=== PATIENT | female | born 1975 ===

== ENCOUNTER 2025-09-09 11:11 | Emergency (ER) | payer MEDICAID ==
[2025-09-09] MEDS ORDERED: Sodium Chloride 0.9% 10 ML Syringe FLUSH PRN (12:08)
[2025-09-09 12:59] LABS: AMPHETAMINES SCREEN, URINE NEGATIVE (NEGATIVE); APPEARANCE,URINE CLOUDY; COCAINE METABOLITES,URINE NEGATIVE (NEGATIVE); EDDP,URINE SCREEN NEGATIVE (NEGATIVE); GLUCOSE,URINE NEGATIVE (NEGATIVE); METHAMPHETAMINES SCREEN, URINE NEGATIVE (NEGATIVE); OCCULT BLOOD,URINE NEGATIVE (NEGATIVE); TCA SCREEN,URINE NEGATIVE (NEGATIVE); THC SCREEN,URINE 50 NG/ML NEGATIVE (NEGATIVE)
[2025-09-09 13:01] LABS: BUPRENORPHINE SCREEN,URINE POSITIVE (NEGATIVE); OXYCODONE SCREEN,URINE NEGATIVE (NEGATIVE)
[2025-09-09 13:04] LABS: EPITHELIAL CELLS,URINE FEW /LPF; SQUAMOUS EPITHELIAL CELLS,UR FEW /HPF (NOT SEEN)
[2025-09-09 14:48] LABS: BASOPHILS ABSOLUTE AUTO 0.02 K/uL (0.00-0.20); BASOPHILS PERCENT AUTO 0.2 % (0.0-2.0); EOSINOPHILS ABSOLUTE AUTO 0.09 K/uL (0.00-0.50); EOSINOPHILS PERCENT AUTO 0.7 % (0.0-5.0); IMMATURE GRAN ABSOLUTE AUTO 0.03 10^3/uL (0.00-0.04); IMMATURE GRAN PERCENT AUTO 0.2 % (0.0-0.4); LYMPHOCYTES ABSOLUTE AUTO 2.11 K/uL (0.50-3.50); LYMPHOCYTES PERCENT AUTO 17.1 % (10.0-50.0); MONOCYTES ABSOLUTE AUTO 0.44 K/uL (0.00-1.00); MONOCYTES PERCENT AUTO 3.6 % (2.0-14.0); NEUTROPHILS ABSOLUTE AUTO 9.63 K/uL (1.40-7.00); NEUTROPHILS PERCENT AUTO 78.2 % (45.0-80.0); PLATELET COUNT,PLT 417 K/uL (150-350); RED BLOOD CELL COUNT 3.18 M/uL (3.77-5.09); RED CELL DISTRIBUTION WIDTH 15.3 % (11.2-14.1); WHITE BLOOD CELL COUNT,WBC 12.3 K/uL (4.0-10.2)
[2025-09-09 15:12] LABS: ALANINE AMINOTRANSFERASE,ALT 10 U/L (12-78); ASPARTATE AMNIOTRANSFERASE,AST 16 U/L (15-37); BILIRUBIN TOTAL 0.1 mg/dL (0.2-1.0); BLOOD UREA NITROGEN,BUN 9 mg/dL (7-18); CARBON DIOXIDE,CO2 32.5 mmol/L (21.0-32.0); CHLORIDE,CL 98 mmol/L (98-107); CREATININE 0.69 mg/dL (0.51-1.17); GLUCOSE RANDOM 95 mg/dL (70-99); POTASSIUM,K 3.8 mmol/L (3.5-5.1); PROTEIN TOTAL,TP 8.6 g/dL (6.4-8.2); SODIUM,NA 134 mmol/L (136-145)
[2025-09-09 15:13] LABS: ESTIMATED GFR 107 mL/min (>=60)
[2025-09-09 16:11] VITALS: BP 133/81; PULSE 88
== END 2025-09-09 16:05 ==
LOC: LL.ED 11:11
DX: M19.90 Unspecified osteoarthritis, unspecified site (principal); F17.200 Nicotine dependence, unspecified, uncomplicated; Z79.899 Other long term (current) drug therapy
CPT/HCPCS: 36415; 72131; 80053; 80305-QW; 81001; 81025; 83735; 85025; 86140; 87086; 87088; 87186; 99284; 99285